=== PATIENT | male | born 2000 | race Caucasian/White ===

== ENCOUNTER 2025-05-25 02:55 | Observation (INO) | payer OTHER, SELFPAY ==
[2025-05-24 22:08] VITALS: BP 105/64
[2025-05-24 22:57] VITALS: BP 121/63
[2025-05-24 23:00] VITALS: BP 119/60
[2025-05-24 23:02] LABS: Hematocrit 37.0 % (39.0-52.0); Hemoglobin 13.3 g/dL (13.0-18.0); Mean Corp Hgb Conc. 35.9 g/dL (33.0-37.0); Mean Corpuscular Volume 92.7 fL (80.0-94.0); Nucleated Red Blood Cells % 0 % (-); Platelet Count 174 10^3/uL (130-400); Red Cell Dist. Width 11.4 % (11.5-14.5)
[2025-05-24 23:09] VITALS: BP 105/74; BP 119/60; BP 122/58; PULSE 69; PULSE 78; PULSE 86
[2025-05-24 23:10] VITALS: BP 105/74
[2025-05-24 23:25] LABS: ALT (SGPT) 63 U/L (0-50); AST (SGOT) 66 U/L (17-59); Albumin 4.7 g/dl (3.5-5.0); Alkaline Phosphatase 161 U/L (38-126); Blood Urea Nitrogen 20 mg/dl (9-20); Calcium 9.1 mg/dl (8.4-10.2); Carbon Dioxide 27 mmol/L (22-30); Chloride 102 mmol/L (98-107); Glucose 118 mg/dl (70-99); Potassium 3.9 mmol/L (3.5-5.1); Sodium 137 mmol/L (135-145); Total Protein 7.4 g/dl (6.3-8.2); eGFR > 60.00
[2025-05-24 23:50] LABS: Troponin I 0.024 ng/ml
[2025-05-24 23:58] LABS: C-Reactive Protein < 5.00 mg/L (0.0-10.00)
[2025-05-25] VITALS (8 sets, daily range): BP systolic 100–120; BP diastolic 50–77; PULSE 68–87; BMI 23.9
--- NOTE | 2025-05-25 00:34 | ED.GENMED ---
History of Present Illness
General
Chief Complaint: Fall
Source: patient and family
Exam Limitations: none
Time Seen by Provider: 05/24/25 23:01
Nursing documentation reviewed up to this point in time: agreed with
History of Present Illness
History of Present Illness:
Note:
CHIEF COMPLAINT(S)
Loss of consciousness; head injury.
HISTORY OF PRESENT ILLNESS
The patient is a 24-year-old male who presented to the emergency department following an episode of syncope and subsequent head injury. The patient reports sitting on the couch for about half an hour to an hour before getting up. He recalls feeling
slightly lightheaded while walking to the bathroom but did not anticipate losing consciousness. He describes passing out and waking up on the kitchen floor after the fall. The patient denies experiencing any chest pain and reports that he had not
consumed alcohol that day. Since the fall, he feels completely fine except for some head discomfort. The patient does not have a history of similar episodes and denies any ongoing medical problems or regular medication use. He works in [employer]
and his most recent doctors visit was in October.
PAST MEDICAL AND SURIGICAL HISTORY
No significant past medical or surgical history was reported.
SOCIAL HISTORY
The patient denies alcohol consumption on the day of the incident.
REVIEW OF SYSTEMS
- General: Denies chest pain.
- Neurological: Reports feeling lightheaded prior to the fall; denies previous syncope episodes.
PHYSICAL EXAM
General: Alert, no acute distress.
Skin: Warm, dry.
Head: Normocephalic, atraumatic, though the patient reports head discomfort following the fall.
Neck: Supple, trachea midline.
Eye, Ears, Nose, Mouth, and Throat: Oral mucosa moist.
Cardiovascular: Normal peripheral perfusion, No edema.
Respiratory: Respirations are non-labored.
Gastrointestinal: Abdomen nondistended.
Back: Normal range of motion, Normal alignment.
Musculoskeletal: Normal ROM, normal strength.
Neurological: Alert and oriented to person, place, time, and situation, No focal neurological deficit observed.
Psychiatric: Cooperative, appropriate mood & affect.
PROBLEM LIST
Acute Problems:
- Syncope
- Head injury from fall
PLAN
- Perform CT scan of the head to assess for any potential injury from the fall.
- Consider head wound closure with surgical glue upon further inspection.
- Review results of newly performed ECG to rule out underlying cardiac issues.
DIFFERENTIAL DIAGNOSIS
The Differential Diagnosis includes, in no particular order and is not limited to:
- Vasovagal syncope
- Hypertrophic cardiomyopathy
- Orthostatic hypotension
- Cardiac arrhythmia
- Dehydration
- Neurologic event
- Hypoglycemia
- Anemia
- Seizure
- Intracranial mass or lesion
- Medication or substance-induced syncope
EKG
My independent EKG interpretation is:
- Time of EKG: Not provided
- Rhythm: Sinus rhythm
- Heart rate: 71 bpm
- Notable intervals: Not provided
- [place]: Not provided
- Abnormalities observed:
- Left ventricular hypertrophy (LVH)
- Lateral ST-T changes
Disposition:
SUMMARY OF ENCOUNTER
The patient is a 24-year-old male who presented to the emergency department after experiencing syncope and hitting his head, resulting in a superficial laceration on the left side of his face, just below the left eyebrow. A CT scan was performed to
assess for any acute injury, and it showed no acute processes. An EKG revealed left ventricular hypertrophy (LVH), raising concerns for hypertrophic cardiomyopathy. Troponin levels were concerning, prompting a trend analysis. Due to these findings,
the patient was admitted for further evaluation.
DISPOSITION
Admit
ASSESSMENT
The patient experienced syncope with a subsequent head injury. The differential diagnosis includes vasovagal syncope, orthostatic hypotension, cardiac arrhythmia, dehydration, a neurological event, hypoglycemia, anemia, seizure, intracranial mass or
lesions among others. The finding of LVH suggests potential hypertrophic cardiomyopathy, warranting further cardiac evaluation.
PLAN
The patient will be admitted for further evaluation and monitoring. Cardiology consultation has been initiated, and troponin levels will be trended to monitor for cardiac events. Additional cardiac workup and monitoring will be done to evaluate for
potential hypertrophic cardiomyopathy.
INDEPENDENT REVIEW OF LABS AND INTERPRETATION OF TESTS
- My independent EKG interpretation shows left ventricular hypertrophy (LVH).
- Troponin levels are concerning and will be continuously monitored.
PROCEDURES
Skin adhesive was used to close the superficial laceration below the left eyebrow.
MEDICAL DECISION MAKING
- Number and Complexity of Problems Addressed: The complex issue of syncope with the potential cardiac component requires careful evaluation. Differential diagnosis includes syncope-related factors such as vasovagal syncope, orthostatic hypotension,
cardiac arrhythmia, dehydration, neurological events, hypoglycemia, anemia, seizure, and intracranial mass or lesions.
- Data:
Category 1:
- My independent interpretation of the EKG shows LVH.
- CT scan shows no acute processes.
Category 3:
- Discussion of management with cardiology: Consulted Dr. Epperson, cardiology regarding the potential hypertrophic cardiomyopathy. He saw the EKG via [place] text.
- Risk: Consideration of Admission/Observation: Escalation of care including admission/observation was considered given the complexity and risk of the patients presenting complaint, exam findings, and/or their underlying comorbidities. However,
ultimately, the patient was admitted for inpatient management due to concerns regarding cardiac issues.
DIAGNOSIS
Syncope (R55); Head injury (S09.90); Superficial laceration of the face (S01.81XA); Left ventricular hypertrophy (I51.7); Suspected hypertrophic cardiomyopathy (I42.2).
Phy Exam
Physical Exam
Physical Exam:
.
Course
Orders/Labs/Results
Orders:
Orders
05/24/25 22:26
Electrocardiogram (*1) Urgent
Reason for Study: Syncope
05/24/25 22:27
EKG- Treatment ONCE
05/24/25 22:42
Complete Blood Count/With Diff Urgent
Comprehensive Metabolic Panel Urgent
05/24/25 23:03
Orthostatic VS- Treatment ONCE
05/24/25 23:13
CRP [C-Reactive Protein] Urgent
Sed Rate [Erythrocyte Sed Rate] Urgent
Troponin I Urgent
05/24/25 23:30
CT Head W/o Iv Contrast Urgent
Comment:
Reason For Exam: syncope and collapse
Abnormal Lab Results
05/24/25
22:42
RBC 3.99 L 10^6/uL
(4.70-6.10)
Hct 37.0 L %
(39.0-52.0)
MCH 33.3 H pg
(27.0-31.0)
RDW 11.4 L %
(11.5-14.5)
MPV 11.9 H fL
(7.4-10.4)
Glucose 118 H mg/dl
(70-99)
AST 66 H U/L
(17-59)
ALT 63 H U/L
(0-50)
Alkaline Phosphatase 161 H U/L
(38-126)
05/24/25 22:42
05/24/25 22:42
Vital Signs
Initial and Last Documented VS:
Initial Vital Signs
Temp Pulse Resp BP Pulse Ox
97.8 F 78 16 105/64 99
05/24/25 22:08 05/24/25 22:08 05/24/25 22:08 05/24/25 22:08 05/24/25 22:08
Last Documented Vital Signs
Temp Pulse Resp BP Pulse Ox
97.8 F 78 16 105/74 98
05/24/25 22:08 05/24/25 22:08 05/24/25 22:08 05/24/25 23:10 05/25/25 00:37
*Pulse Oximetry
SaO2: 98
Oxygen Mode of Delivery: Room air
Patient hypoxic: no
*Critical Care Note
Total Time (30-74mins, 75-104mins- exclusive of procedures): 33 (Critical care statement: A total of 33 minutes of critical care time was provided for this patient. This time is separate from time utilized to perform the aforementioned documented
procedures. Aggregate critical care time includes only time during which I was engaged in work directl)
ED Attending Note
-
Portions of this chart may have been created with voice recognition software.� Occasional wrong word or��sound alike� substitutions may have occurred due to the inherent limitations of voice recognition software.
Discharge Plan
Departure
Patient Disposition: Admit
Date of Disposition: 05/25/25
Time of Disposition: 00:37
Presentation/result/management discussed w/ accepting MD/DO: Hospitalist
Condition: Fair
Discharge Problem:
Syncope and collapse, Laceration of skin of face
Instructions: Laceration Repair With Glue (DC)
Referrals:
Charan Root MD [Family Provider, Internal Medicine]
Interventions
Interventions:
*General Assessment Last Done: 05/24/25 22:35
*Neglect/Abuse Screening Last Done: 05/24/25 22:35
*ED COVID-19 Vaccine History Last Done: 05/24/25 22:35
*ED Influenza Vaccine History Last Done: 05/24/25 22:35
[facility] Risk Assessment Tool Last Done: 05/24/25 23:47
*Risk Screen - Suicide (C-SSRS) Last Done: 05/24/25 22:35
ED-Musculoskeletal Assessment Last Done: 05/24/25 23:46
ED- Neurological Assessment Last Done: 05/24/25 23:46
ED-Skin Assessment Last Done: 05/24/25 23:46
Discharge Date and Time
Print Language: GEORGIAN
--- NOTE | 2025-05-25 02:45 | HPS.HSE ---
Family Physician
-
Family Physician: Charan Root
Chief Complaint
-
Syncope / Collapse
History of Present Illness
Patient is a 24y M with no significant PMH who presents to ED for evaluation after syncopal episode at home. Patient states that he has been feeling well lately. He had a normal day today in terms of food / fluid intake. He was sitting for
much of the day watching TV. He stood to go to the bathroom and then woke on the kitchen floor. He immediately stood up, walked up the stairs to get assistance from his family. He felt 'a little off' just prior to syncope, but denies any obvious
lightheadedness, dizziness, chest pain, dyspnea, etc. He denies any prior h/o similar events.
He is physically active and exercises regularly. On no medications.
In the ED patient complains of feeling tired but otherwise has no complaints.
He has a laceration to the L brow area that has been glued in the ED.
Medical History
Past Medical History
Past Medical History: Reports Other
Additional Past Medical History:
Thyroglossal Duct Cyst
Past Surgical History: Reports Other
Additional Past Surgical History:
Excision of Thyroglossal Duct Cyst (Infancy)
Social History
Tobacco: Non-smoker
Alcohol: Occasional (Rarely. None in 2+ months)
Drug: None
Living: With Family
Family History
Family History: Not pertinent
Allergies / Home Medications
Allergies reflects when Allergies were last updated in [employer].
Home Medications with original date entered in [employer]
Allergy/Medication List:
Allergies
Allergy/AdvReac Type Severity Reaction Status Date / Time
No Known Allergies Allergy Unverified 03/08/10 15:39
Home Medications
No Meds [No Current Medications] 05/25/25
Review of Systems
-
History Source: Patient
Constitutional: Reports Fatigue; Denies Fever or Chills
EENT: Denies Sore Throat
Respiratory: Denies Cough or Trouble Breathing
Cardiac: Denies Chest Pain or Palpitations
Abdomen/GI: Denies Abdominal Pain, Nausea, Vomiting or Diarrhea
: Denies Dysuria or Frequency
Musculoskeletal: Denies Joint Pain or Edema
Neurological: Denies Dizzy, Headache, Weakness or Numbness
Psych: Denies Depression or Anxiety
Physical Exam
Vital Signs
Vital Signs
Temp Pulse Resp BP Pulse Ox
97.8 F 78 16 120/56 98
05/24/25 22:08 05/24/25 22:08 05/24/25 22:08 05/25/25 01:37 05/25/25 00:37
Physical Exam
General: Other (24y M in no acute distress.)
HEENT: Moist mucous membranes and PERRLA
Respiratory: Clear; No Wheezes, Rales or Rhonchi
Cardiac: S1/S2 and Regular Rhythm; No Murmur
GI: Soft, Non Tender, Non Distended and Normal Bowel Sounds
Musculoskeletal: No Clubbing, No Cyanosis and No Edema
Neuro: AO x 3 and Nonfocal/grossly intact
Laboratory Results
-
05/24/25 22:42
05/24/25 22:42
Laboratory Results
Total Bilirubin 0.2 mg/dl (0.2-1.3) 05/24/25 22:42
AST 66 U/L (17-59) H 05/24/25 22:42
ALT 63 U/L (0-50) H 05/24/25 22:42
Alkaline Phosphatase 161 U/L (38-126) H 05/24/25 22:42
Troponin I 0.024 ng/ml 05/24/25 23:13
Impression/Plan
-
A/P: Patient is a 24y M with no significant PMH who presents to ED for evaluation after syncopal episode at home.
Syncope
- Observe overnight for further evaluation and treatment.
- No evident explanation for his symptoms / episode.
- Monitor on tele overnight.
- Echo in AM.
- Cardiology evaluation.
- Follow orthostatic signs.
- Monitor for any new / recurrent symptoms.
Head Injury / Fall
- CT head in the ED without acute abnormality.
- Monitor for any changes in exam.
- Local care to L brow laceration.
Abnormal LFTs
- Mildly abnormal LFTs - ? traffic workforce representative of viral syndrome, etc.
- Check COVID / flu. Monitor for development of any new symptoms.
- Follow for changes in labs.
DVT Prophylaxis: SCDs
Code Status: Full
[2025-05-25 04:04] LABS: COVID-19 Antigen Negative (Negative)
[2025-05-25] MEDS: LR 1000 IV ×2 (05:02→17:21)
[2025-05-25 07:36] LABS: Hematocrit 38.5 % (39.0-52.0); Hemoglobin 13.3 g/dL (13.0-18.0); Mean Corp Hgb Conc. 34.5 g/dL (33.0-37.0); Mean Corpuscular Volume 93.7 fL (80.0-94.0); Platelet Count 163 10^3/uL (130-400); Red Cell Dist. Width 11.6 % (11.5-14.5)
[2025-05-25 07:54] LABS: Troponin I < 0.012 ng/ml
[2025-05-25 08:02] LABS: ALT (SGPT) 55 U/L (0-50); AST (SGOT) 50 U/L (17-59); Albumin 4.3 g/dl (3.5-5.0); Alkaline Phosphatase 106 U/L (38-126); Blood Urea Nitrogen 18 mg/dl (9-20); Calcium 9.3 mg/dl (8.4-10.2); Carbon Dioxide 28 mmol/L (22-30); Chloride 108 mmol/L (98-107); Estimated Creatinine Clearance > 125 ml/min; Glucose 104 mg/dl (70-99); Magnesium 2.0 mg/dl (1.6-2.3); Potassium 4.5 mmol/L (3.5-5.1); Sodium 140 mmol/L (135-145); Total Protein 6.9 g/dl (6.3-8.2); eGFR > 60.00
[2025-05-25 08:02] LABS: Glucose - Point of Care 104 mg/dl (70-99)
--- NOTE | 2025-05-25 08:04 | CON.CAR ---
Addendum entered and electronically signed by Kishore Zacarias MD 05/25/25 11:55:
I reviewed and agree with the note by ZHAO Rivera and it accurately reflects our care.
I saw and evaluated the patient, and I provided the substantive portion of the medical decision making. My assessment and plan is below:
24-year-old man with no significant past medical history who presents with syncope and facial trauma. Patient reports that he was on the couch last night around 9PM when he got up to go to the bathroom. He then woke up on the ground with facial
trauma. He denies any prodrome. No loss of bowel/bladder or tongue biting. This was unwitnessed. Was feeling like his normal self that day and recently. Exercises daily, sometimes twice per day - runs and lifts weights. He denies drug use. No EtOH
yesterday. He has no family history of SCD or unexpected drowning/car accidents. He now feels completely normal. He has had 2 episodes in his life of presyncope in scientology which resolved with going outside.
Physical exam: RRR, no murmurs, no lower extremity edema, clear lungs, left eye swollen and ecchymotic, cuts on chin
Labs notable for troponin 0.024 -> <0.012, AST/ALT 66/63, creatinine 0.8. UDS negative.
ECG: NSR, incomplete right bundle branch block (no prior for comparison)
TTE 05/25/2025: LVEF 55-60%, suspected bicuspid aortic valve, mild AR, trivial pericardial effusion
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
Syncope: He had no prodrome and facial trauma which is concerning for cardiogenic syncope. His echocardiogram is notable for a possible bicuspid aortic valve but I do not think that is related to his presentation. His heart is otherwise
structurally normal. He has an incomplete right bundle branch block on ECG which certainly could be a normal variant but in the context of his unexplained syncope, may require further investigation with EP study. We will plan to discharge him with
a 30-day MCOT after 24 hours of telemetry monitoring in the hospital. He is planning to follow-up with Dr. Aakash Sims at [facility] where his uncle works. I advised him not to drive at least until the results of his monitor are back.
Recommend asking neurology if his CT head findings could be at all related to his presentation.
Original Note:
Consultation
Consultation Request
Date/Time Consultation Requested: 05/25/25 0452
Date/Time Consultation Performed: 05/25/25 0800
Requesting Provider: Dr. Garcia
Performing Provider: Nisha CHURCHILL for Dr. Zacarias
Reason for Consultation: syncope
Medical History
-
Chief Complaint: syncope
History of Present Illness:
24 y/o male with no known PMH who is here for evaluation after he got up from the couch last night around 9 PM and was walking toward the bathroom. He maybe felt a little light-headed, but not significantly. He woke up on the floor and had hit his
head. He came to the ER for evaluation. Head CT negative for bleed. He denies any previous syncope, though over the years has had 2 episodes of pre-syncope in scientology, which resolved with getting outside. He is in no distress at the time of my
assessment. He denies any CP, SOB, or palpitations. His parents are at bedside. He is active and works out and has no trouble doing so. He denies any family history of SCD or heart disease in general. There is no drug use. He ate and drank fluids
yesterday like normal- no ETOH yesterday. Denies any recent illnesses. Patients at bedside.
Past Medical History
Past Medical History: None
Social History
Tobacco: Non-Smoker
Alcohol: Other (hasn't had ETOH in several months)
Drug: None
Family History
Family History: Reviewed & Not Pertinent (denies any family history of heart disease or SCD)
Allergies / Home Medications
Allergy/AdvReac Type Severity Reaction Status Date / Time
No Known Allergies Allergy Unverified 03/08/10 15:39
�Medication �Instructions �Recorded �Confirmed �Type
No Meds [No Current Medications] 05/25/25 05/25/25 History
Review of Systems
-
History Source: Patient
All other systems: Negative unless noted
Cardiac: Syncope
Physical Exam
Vital Signs
Temp Pulse Resp BP Pulse Ox
98.7 F 68 18 108/59 96
05/25/25 05:01 05/25/25 05:01 05/25/25 05:01 05/25/25 05:01 05/25/25 05:01
Lab Results
05/25/25 07:16
05/25/25 07:16
Troponin I < 0.012 ng/ml 05/25/25 07:16
Physical Exam
General: Well Developed, Well Nourished and No Apparent Distress
HEENT: Normocephalic and Anicteric
Respiratory: Clear and Non Labored Respirations
Cardiac: Regular Rhythm
Musculoskeletal: No Edema
Skin: Warm, Dry and Other (laceration on left brow)
Neuro: AO x 3
Psych: Calm
Impression / Plan
-
Syncope:
-etiology unclear. He reports some possible mild LH prior, but did not feel that he would pass out, then woke up on floor with head injury. Denies any CP, SOB, palpitations. No family history of SCD or cardiac issues. Also no personal history of
cardiac issues. Denies drug use. Active without issue. No previous syncope, but two episodes of near syncope in scientology over many years, which resolved with going outside.
-EKG with IC RBBB. No previous EKG. Tele is stable- follow. Likely OP monitor if no cause seen here.
-echo obtained this AM- results pending.
-orthos negative this AM
-hit head and has facial lacerations. Head CT overnight read by radiology: no acute intracranial hemorrhage or acute intracranial abnormality, prominent CSF posterior to the cerebellum may be due to prominent cisterna magna or retrocerebellar
arachnoid cyst. Defer to hospitalists if further w/u indicated.
Abnormal LFT's:
-improving
-unclear etiology
-per primary
Data Reviewed
-
EKG: Tracing Personally Visualized and interpreted (SB with IC RBBB)
CT Scan: Report Reviewed by me (negative for acute hemorrhage)
Medical Tests (Nuc Med, Echo etc): Other (echo ordered and pending)
Labs: Labs Reviewed by me
--- NOTE | 2025-05-25 11:50 | W.PN.HOSP.TC ---
Today's Communication/Plan
-
see A/P
Assessment / Plan
Assessment / Plan
HPI: 24 yo M with no significant PMH who presented to ED for evaluation after syncopal episode at home. Patient states that he has been feeling well lately. He had a normal day and was sitting for much of the day watching TV. He stood to go to
the bathroom and then woke on the kitchen floor. He immediately stood up, walked up the stairs to get assistance from his family. He felt 'a little off' just prior to syncope, but denies any obvious lightheadedness, dizziness, chest pain, dyspnea,
etc. He denies any prior h/o similar events.
No sick contact. Pt does not drink alcohol.
He is physically active and exercises regularly. On no medications.
In the ED, patient complains of feeling tired but otherwise has no complaints.
He has a laceration to the L brow area that has been glued in the ED.
A/P:
# Syncope
Monitor on tele, so far no tele event
Echo unrevealing:
1. Normal biventricular size and systolic function, with no regional wall motion abnormalities. Estimated LVEF 55-60%.
2. Suspected bicuspid aortic valve. No aortic stenosis. Mild aortic regurgitation.
3. A trivial pericardial effusion is present.
Appreciate Cardiology input. Recc to continue tele monitor for 24 hours
orthostatic sign negative.
UDS negative.
Monitor for any new / recurrent symptoms.
Neuro CS
# Head Injury / Fall
CT head in the ED without acute abnormality.
Local care to L brow laceration.
# Abnormal LFTs
Mildly elevated ALT/AST on admission, improving
Cont to monitor
Flu/COVID negative
DVT Prophylaxis: SCDs
Code Status: Full
DW RN
DW Card
DW mother and father at bedside
total time 51 min
Anticipated Discharge: Within 24 hours
Subjective/Interval History
-
Date of Service: May 25, 2025
Objective Data
-
Labs:
Laboratory Results
05/25/25
07:16
WBC 5.8
Hgb 13.3
Hct 38.5 L
Plt Count 163
Sodium 140
Potassium 4.5
Chloride 108 H
Carbon Dioxide 28
BUN 18
Creatinine 0.8
Glucose 104 H
Calcium 9.3
Total Bilirubin 0.2
AST 50
ALT 55 H
Alkaline Phosphatase 106
Vital Signs:
Vital Signs
Temp Pulse Resp BP Pulse Ox
36.7 C 53 16 115/64 97
05/25/25 11:15 05/25/25 11:15 05/25/25 11:15 05/25/25 11:15 05/25/25 11:15
Review of Systems
-
History Source: Patient
All other systems: Reviewed and negative
Cardiac: Denies Chest Pain or Palpitations
Physical Exam
-
General: Well Developed, Well Nourished, No Apparent Distress, Comfortable and Conversant; Negative Respiratory Distress
HEENT: Normocephalic, Atraumatic, Nose Appears Normal and Ears Appear Normal; Negative Oxygen
Respiratory: Clear to Auscultation and Non Labored Respirations; Negative Accessory Resp Muscle Use
Cardiac: Regular Rhythm and S1/S2
GI: Soft, Nontender, Nondistended and Normal Bowel Sounds
Skin: Warm, Dry and Other (L eyebrow laceration)
Neuro: Awake, Alert, Oriented, AO x 3 and Nonfocal/Grossly Intact
Psych: Calm and Intact Judgement/Insight
Data Reviewed
-
CT Scan: Report Reviewed by me
Medical Tests (Nuc Med, Echo etc): Report Reviewed by me (echo)
Labs: Labs Reviewed by me
[2025-05-25 11:58] LABS: Glucose - Point of Care 99 mg/dl (70-99)
--- NOTE | 2025-05-25 12:21 | CON.NEURO ---
Addendum entered and electronically signed by Kyree Adame MD 05/25/25 22:42:
The patient was seen and examined today along with the Nurse Practitioner Lu Cooper, and I agree with her assessment and plan. Given below is my addendum.
The patient is a 24 years old male, who presented to the ED after a fall at home, when he got up to walk to the bathroom, in the fall he hit his head to the floor and suffered facial trauma. He also had a LOC and he did not know where he was when he
woke up. He says that he did not have any warning prior to the fall. The patient does not remember that for how long he was down. He denies any tongue bite or B/B incontinence. At this time he says that he had returned to his baseline.
The Neurologic Examination is normal.
The etiology of his fall appears to be more likely 2/2 a seizure due to facial injury, no warning prior to the fall, LOC and confusion when he woke up after the fall. The orthostatics were negative. Also included in the differential diagnosis can be
convulsive syncope and cardiogenic syncope.
Plan to get MRI brain with and without IV contrast and consider ANA after consultation with Cardiology. Routine EEG done today was unremarkable, but long-term EEG monitoring needs to be considered.
Seizure precautions including no driving for 6 months and reporting to [facility].
Follow up in Neurology clinic.
I had a detailed discussion with the patient and his parents regarding the assessment and management plan, including seizure precautions, and they verbalized understanding of and agreement to the plan.
Original Note:
Neuro Assessment/Plan
Assessment
Patient is a 24-year-old man with no significant past medical history who presents to [facility] on 05/24/2025 with syncope and facial trauma.
Labs notable for troponin 0.024 -> <0.012, AST/ALT 66/63, creatinine 0.8. UDS negative.
ECG: NSR, incomplete right bundle branch block (no prior for comparison)
TTE 05/25/2025: LVEF 55-60%, suspected bicuspid aortic valve, mild AR, trivial pericardial effusion
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
Plan
Impression: abrupt onset of syncope with facial trauma, differentials include seizure vs orthostasis although less likely since orthostatics have been negative here vs cardiogenic syncope
-obtain EEG to rule out seizure
-head CT showed likely prominent cisterna magna or retrocerebellar arachnoid cyst (most likely not the cause as these tend to be asymptomatic), obtain brain MRI with and without
-appreciate cardiology recommendations
-seizure precautions
-patient should not drive for 6 months and should report to [facility]
-follow up with neurology office outpatient
-pending testing results may need to start antiepileptic medications
All questions encouraged and answered, plan of care discussed with Dr. Adame, hospitalist, patient and family
Consultation
Order
Date of Consultation: 05/25/25
Requesting Provider: hospitalist/ Dr. Racheal Oleary
Reason for Consult: syncope
Subjective/Objective
Subjective Data
Date of Service: May 25, 2025
Patient is a 24-year-old man with no significant past medical history who presents to [facility] on 05/24/2025 with syncope and facial trauma. Patient reports that he was on the couch last night around 9PM when he got up to go to the bathroom. He then
woke up on the ground with facial trauma. Does not know how long he was down. He denies any prodrome. No loss of bowel/bladder or tongue/cheek biting. He states he woke up and felt confused which only lasted seconds. This was unwitnessed. Was
feeling like his normal self that day and recently. Exercises daily, sometimes twice per day - runs and lifts weights. He denies drug use. No EtOH yesterday. He has no family history seizures. He now feels completely normal. He has had 2 episodes
in his life of presyncope in congregation but contributed these to dehydration. No recent illness, no new medications. Denies headache, lightheadedness, dizziness, chest pain, neck/back pain or SOB. His neuro exam today is unremarkable. His head CT showed
no acute intracranial abnormality, a prominent retrocerebellar CSF space may represent a meenakshi cisterna magna or arachnoid cyst. He is also being worked up from cardiology. His TTE showed LVEF 55-60%, suspected bicuspid aortic valve, mild AR, trivial
pericardial effusion. Labs notable for troponin 0.024 -> <0.012, AST/ALT 66/63, creatinine 0.8. UDS negative.
Objective Data
Vital Signs
Temp Pulse Resp BP Pulse Ox
98.0 F 53 16 115/64 97
05/25/25 11:15 05/25/25 11:15 05/25/25 11:15 05/25/25 11:15 05/25/25 11:15
Lab Results
05/25/25 07:16
05/25/25 07:16
Sodium 140 mmol/L (135-145) 05/25/25 07:16
Potassium 4.5 mmol/L (3.5-5.1) 05/25/25 07:16
BUN 18 mg/dl (9-20) 05/25/25 07:16
Glucose 104 mg/dl (70-99) H 05/25/25 07:16
Calcium 9.3 mg/dl (8.4-10.2) 05/25/25 07:16
Phosphorus 3.4 mg/dl (2.5-4.5) 05/25/25 07:16
Ur Buprenorphine Negative (Negative) 05/25/25 09:34
Patient Allergies
No Known Allergies Allergy (Unverified 03/08/10 15:39)
Physical Exam
-
General: Comfortable and Appears Stated Age
HEENT: Normocephalic and Other (L brow laceration and ecchymosis )
Neck: Full Range of Motion
Respiratory: No Dyspnea
Cardiac: No JVD
GI: Non-distended
Skin: Unremarkable
Extremities: No Clubbing, No Cyanosis and No Edema
Psych: Unremarkable
Extended Neurological Exam
Mood & Affect: Mood Unremarkable
Attention Span & Concentration: Awake, Alert, Interactive and No Difficulty with 2 Step Request
Memory: Unremarkable
Involuntary Movement: None
Speech: Quality Unremarkable, Quantity Unremarkable and Rate of Production Unremarkable
Cranial Nerves III, IV, : Extraocular Movement: Extraocular Movement Full in all Directions
Cranial Nerve VII: Facial Symmetry: Normal Facial Symmetry
Cranial Nerve VIII: Hearing: Unremarkable Hearing to Normal Conversational Volume
Muscle Strength, Overall: Full Throughout
Pronator Drift: No Drift in Upper Extremities and No Drift in Lower Extremities
Coordination: Tzekkm-sami-lmwnuk Testing Unremarkable and Bucl-Lbgn-Qzvs movements intact bilaterally
Data Reviewed
-
CT Head: Report Reviewed and Image Reviewed
MRI Head: Ordered
EEG: Ordered
Medical Test Reports: Report Reviewed
Orthostatic Testing: Report Reviewed
Labs: Report Reviewed
Reviewed with: Physician, Patient and Family
Old Records: Summarized
Medications
-
Active Medications
Generic Name Dose Route Start Last Admin
Trade Name Freq PRN Reason Stop Dose Admin
Acetaminophen 650 mg 05/25/25 04:52
Acetaminophen 325 Mg Tablet PO 06/22/25 04:51
Q4HPRN PRN
Mild Pain / Temp > 101
Lactated Ringer's 1,000 mls @ 100 mls/hr 05/25/25 04:52 05/25/25 05:02
Lr IV 1,000 mls
.Q10H JACEK Administration
Home Medications
�Medication �Instructions �Recorded
No Meds [No Current Medications] 05/25/25
[2025-05-25 13:35] LABS: Troponin I < 0.012 ng/ml
--- NOTE | 2025-05-25 17:43 | CM ---
Alert awake oriented patient who lives with his mom Rani who lives in a 2 story home with 2 step to enter and 14 steps to bed and bathroom. He is independent in driving and in all activities of daily living.He was offered VN he declined need.Reg
Observation letter reviewed Copy given Pt did not sign .
No VN hx / No SNF history
Pharmacy [facility]
PCP DR Root
PLAN Home Declined VN
[2025-05-25 19:31] LABS: Troponin I < 0.012 ng/ml
--- NOTE | 2025-05-25 20:19 | EEG.RPT ---
Electroencephalogram Report
Recording
Date of EE05/25/25
Type of EEG: Routine
Length of EEG recordin minutes
Done with Video Recording: Yes
Patient Status: Inpatient
Recording Conditions: Awake and Drowsy
Hyperventilation Performed: Yes
Photic Stimulation Performed: Yes
Report
Duration: 29 minutes
Method:
A 21 channel digitized EEG was obtained. The 10-20 International System of electrode placement was seen. ECG was monitored. Video was recorded.
Report:
The posterior dominant rhythm reaches up to 11 Hz.
The background rhythm does not show asymmetry in amplitude and frequency between the hemispheres.
Drowsiness was seen.
Hyperventilation was performed but it did not make any significant change.
Photic stimulation did not produce any abnormal change.
There was no definite epileptiform activity seen.
Clinical Interpretation:
This is a normal awake and drowsy state EEG. A normal EEG does not rule out the possibility of a seizure. Clinical correlation is recommended. If considered clinically necessary, a 24 hour continuous EEG needs to be done.
[2025-05-26 03:40] VITALS: BP 106/64
[2025-05-26 07:08] VITALS: BP 126/67
[2025-05-26 09:04] LABS: ALT (SGPT) 47 U/L (0-50); AST (SGOT) 37 U/L (17-59); Albumin 4.5 g/dl (3.5-5.0); Alkaline Phosphatase 55 U/L (38-126); Blood Urea Nitrogen 11 mg/dl (9-20); Calcium 9.1 mg/dl (8.4-10.2); Carbon Dioxide 26 mmol/L (22-30); Chloride 103 mmol/L (98-107); Estimated Creatinine Clearance > 125 ml/min; Glucose 104 mg/dl (70-99); Magnesium 1.9 mg/dl (1.6-2.3); Potassium 4.5 mmol/L (3.5-5.1); Sodium 137 mmol/L (135-145); Total Protein 7.1 g/dl (6.3-8.2); eGFR > 60.00
[2025-05-26 11:00] VITALS: BP 117/71; BP 121/65; BP 122/67; PULSE 66; PULSE 67; PULSE 76
--- NOTE | 2025-05-26 12:00 | W.DCSUMMARY ---
Discharge Summary
Discharge Data
Date of Admission: 05/25/25
Date of Discharge: 05/26/25
Total time spent discharging patient (in min): 50
-
Pending Results: Yes
Additional Pending Results:
MRI of brain
Hospital Course
Initial presentation and HPI:
24 yo M with no significant PMH who presented to ED for evaluation after syncopal episode at home. Patient states that he has been feeling well lately. He had a normal day and was sitting for much of the day watching TV. He stood to go to the
bathroom and then woke on the kitchen floor. He immediately stood up, walked up the stairs to get assistance from his family. He felt 'a little off' just prior to syncope, but denies any obvious lightheadedness, dizziness, chest pain, dyspnea, etc.
He denies any prior h/o similar events. No sick contacts. Pt does not drink alcohol. He is physically active and exercises regularly. On no medications.
In the ED, patient complained of feeling tired but otherwise has no complaints. He had a laceration to the L brow area that has been glued in the ED.
Past medical History:
None
Relevant imaging:
CT of brain
The ventricles are normal in size, configuration, and position.
No intra- or extra-axial mass or hemorrhage.
A prominent retrocerebellar CSF space may represent a meenakshi cisterna magna or arachnoid cyst.
No areas of abnormal mass effect or attenuation are noted.
The imaged paranasal sinuses and mastoid air cells are clear.
IMPRESSION:
No acute intracranial abnormality.
Brain MRI - not yet read, results pending
Echocardiogram
1. Normal biventricular size and systolic function, with no regional wall motion abnormalities. Estimated LVEF 55-60%.
2. Suspected bicuspid aortic valve. No aortic stenosis. Mild aortic regurgitation.
3. A trivial pericardial effusion is present.
4. No prior study for comparison.
ECG
SINUS BRADYCARDIA (59)
INCOMPLETE RIGHT BUNDLE BRANCH BLOCK
POSSIBLE LATERAL INFARCT (CITED ON OR BEFORE 24-May-2025)
ABNORMAL ECG
Hospital course by problem:
1. Syncope
Monitored on tele, so far no tele event. Patient requested to go home before full workup was finished.
Echo was unrevealing:
Cardiology saw the patient. This is their comments:
'He had no prodrome and facial trauma which is concerning for cardiogenic syncope.
His echocardiogram is notable for a possible bicuspid aortic valve but I do not think that is related to his presentation.
His heart is otherwise structurally normal.
He has an incomplete right bundle branch block on ECG which certainly could be a normal variant but in the context of his unexplained syncope, may require further investigation with EP study.
We will plan to discharge him with a 30-day MCOT after 24 hours of telemetry monitoring in the hospital.
He is planning to follow-up with Dr. Aakash Sims at [facility] where his uncle works.
I advised him not to drive at least until the results of his monitor are back.
Recommend asking neurology if his CT head findings could be at all related to his presentation.
orthostatic sign negative.
UDS negative.
Monitor for any new / recurrent symptoms.
Neuro CS'
Neurology saw the patient. This is their comments:
'The Neurologic Examination is normal.
The etiology of his fall appears to be more likely 2/2 a seizure due to facial injury, no warning prior to the fall, LOC and confusion when he woke up after the fall.
The orthostatics were negative. Also included in the differential diagnosis can be convulsive syncope and cardiogenic syncope.
Plan to get MRI brain with and without IV contrast and consider ANA after consultation with Cardiology.
Routine EEG done today was unremarkable, but long-term EEG monitoring needs to be considered.
Seizure precautions including no driving for 6 months and reporting to [facility].
Follow up in Neurology clinic.'
2. Head Injury / Fall
CT head in the ED without acute abnormality.
Local care to L brow laceration.
He should see his PCP in days to make sure it is healing without complication
3. Abnormal LFTs
Mildly elevated ALT/AST on admission, Cause not known, but it is improving
Cont to monitor
Flu/COVID negative
DVT Prophylaxis during hospitalization: SCDs
Code Status during hospitalization: Full
Physical exam on day of discharge:
General: Well Developed, Well Nourished, No Apparent Distress, Comfortable and Conversant; Negative Respiratory Distress
HEENT: Normocephalic, Atraumatic, Nose Appears Normal and Ears Appear Normal; Negative Oxygen
Respiratory: Non Labored Respirations; Negative Accessory Resp Muscle Use
Cardiac: Regular Rhythm
Neuro: Awake, Alert, Oriented, AO x 3 and Nonfocal/Grossly Intact
Psych: Calm and Intact Judgement/Insight
Discharge Plan
-
Patient Disposition: Home (Routine Discharge)
Discharge Diagnosis/Procedures: syncope
Diet: As tolerated
Additional Activity: No power tools, no activities where sudden loss of consciousness may cause undue harm.
Driving Restrictions: No driving
Bathing Restrictions: None
Others Tests: 30 day heart monitor- cardiology office will call you to arrange
Referrals:
Charan Root MD [Family Provider, Internal Medicine]
Additional Discharge Medication Instructions: Please follow-up with social worker aide after discharge, follow up with Neurology after discharge, follow up with PCP [facility]
Prescriptions:
No Action
No Current Medications
0
Discharge Orders:
Discharge Patient (As Directed); Ordered 05/26/25
Ordered By: Abdulkadir Ribeiro
Discharge Date and Time
Print Language: BURMESE
== END 2025-05-26 12:34 | disposition home or self-care (01) ==
LOC: 4 EAST ACU 02:55
PROVIDERS: Internal Medicine; ADMITTING PHYSICIAN Hospitalist; ATTENDING PHYSICIAN Internal Medicine; CONSULT PHYSICIAN Psychiatry & Neurology Neurology; EMERGENCY PHYSICIAN Student in an Organized Health Care Education/Training Program; FAMILY PHYSICIAN Internal Medicine; OTHER PHYSICIAN Student in an Organized Health Care Education/Training Program
DX: R55 Syncope and collapse (principal); S01.81XA Laceration without foreign body of other part of head, initial encounter; W18.39XA Other fall on same level, initial encounter; I45.10 Unspecified right bundle-branch block; R79.89 Other specified abnormal findings of blood chemistry; R74.01 Elevation of levels of liver transaminase levels; Z11.52 Encounter for screening for COVID-19
CPT/HCPCS: 70450; 70553; 80053; 80306; 82248; 82962; 83735; 84100; 84443; 84484; 85025; 85027; 85652; 86140; 87502; 87811; 93005; 93306; 95816; 99291; A9575; G0378